=== PATIENT | female | born 1970 | race Caucasian/White ===

== ENCOUNTER → 2016-05-15 | Outpatient (CLI) | payer OTHER ==
[~2016-05-15] MED LIST: DOCU10CA PO; PERCOCET PO
== END ==
LOC: M LAB 09:05
PROVIDERS: ATTEND Physician Assistant
DX: N39.0 Urinary tract infection, site not specified (principal)

== ENCOUNTER → 2017-06-18 | Outpatient (CLI) | payer OTHER | LOC: M LAB 11:32 | DX: R05 Cough (principal); J00 Acute nasopharyngitis [common cold] | CPT/HCPCS: 87633 ==

== ENCOUNTER → 2019-07-23 | Outpatient (CLI) | payer OTHER | LOC: M LABSMTC 13:44 | PROVIDERS: ATTEND Family Medicine | DX: Z11.59 Encounter for screening for other viral diseases (principal); Z20.828 Contact with and (suspected) exposure to other viral communicable diseases ==

== ENCOUNTER 2019-12-12 07:19 | Day surgery (SDC) | payer OTHER ==
[~2019-12-12] VITALS: Ht 172.7 cm; Wt 53.1 kg
[2019-12-12] MEDS ORDERED: CLINDAMYCIN 600 MG/50 ML PREMIX BAG As Ordered ONE (07:42)
[2019-12-12] MEDS ORDERED: LR 1,000 ML IV ONE (08:00)
[2019-12-12] MEDS ORDERED: CLINDAMYCIN 600 MG in IV 1 EA IV ONE (08:00)
[2019-12-12] MEDS ORDERED: fentaNYL 100 MCG/2 ML INJECTION (J3010) As Ordered ONE (08:02)
[2019-12-12] MEDS ORDERED: LIDOCAINE 2% 100MG/5ML SDV (FOR ANES.) As Ordered ONE (08:02)
[2019-12-12] MEDS ORDERED: propofoL 200 MG/20 ML VIAL As Ordered ONE (08:02)
[2019-12-12] MEDS ORDERED: MIDAZOLAM INJ 2MG/2ML VIAL (J2250 PER 1MG) As Ordered ONE (08:03)
[2019-12-12] MEDS ORDERED: BUPIVACAINE HCL 0.5% 10ML VIAL As Ordered ONE (08:19)
[2019-12-12] MEDS ORDERED: dexameTHASONE 4 MG/ML 1ML VIAL (J1100 PER 1MG) As Ordered ONE (08:19)
[2019-12-12] MEDS ORDERED: LIDOCAINE 1% MDV 20ML VIAL As Ordered ONE (08:19)
[2019-12-12] MEDS ORDERED: PHENYLephrine HCL 500 MCG/5 ML (100MCG/ML) SYRINGE (J2370) As Ordered ONE (08:48)
[2019-12-12] MEDS ORDERED: ACETAMINOPHEN 1000MG 100ML IV BTL (OFIRMEV) (J0131 PER 10MG) As Ordered ONE (08:59)
[2019-12-12] MEDS ORDERED: LACRILUBE (AKWA TEARS) OPHTH OINT 3.5 GM As Ordered ONE (09:11)
[2019-12-12] MEDS ORDERED: ONDANSETRON 4MG/2ML VIAL As Ordered ONE (09:18)
[2019-12-12] MEDS ORDERED: ePHEDrine SULFATE 25 MG/5 ML(5MG/ML) SYRINGE As Ordered ONE (09:24)
[2019-12-12] MEDS ORDERED: KETOROLAC 60MG 2ML VIAL As Ordered ONE (09:28)
[2019-12-12 10:45] VITALS: BP 107/54
--- NOTE | 2020-01-30 12:29 | RO ---
DATE OF OPERATION: 12/12/2019 PREOPERATIVE DIAGNOSIS: Right foot recurring neuroma and hammertoes. POSTOPERATIVE DIAGNOSIS: Right foot recurring neuroma and hammertoes. PROCEDURE: Right foot revisional neuroma excision and hammertoe correction, toes 3 and 4. SURGEON: MARIS FISCHER DPM CAREER SERVICES ASSISTANT: None. ANESTHESIA: Monitored anesthesia. Preop injection of 10 mL of a 1:1 mixture of 1% lidocaine plain, 1/2% Marcaine plain. ESTIMATED BLOOD LOSS: Minimal. MATERIALS: 4.5 K-wire, 3-0 and 4-0 Vicryl, 4-0 nylon. INJECTABLES: 1 mL Decadron, 4 mg per mL. COMPLICATION: None. SPECIMEN: Right neuroma. INDICATIONS: Deedee Oconnor is a patient who presents to [facility] with continued pain at a previous neuroma excision as well as recurring hammertoe deformity. She presents today for surgical correction. The patient's side and site were identified and marked in the preoperative holding area. Consent was reviewed and obtained. All risks, complications, and alternatives to the procedure were explained to the patient in detail and all questions were answered. PROCEDURE: The patient was brought to the operating room and placed on the operating room table in the supine position. Monitored anesthesia care was delivered by the anesthesia team. Preoperative injection of 10 ml of a 1:1 mixture of 1% lidocaine plain and 0.5% Marcaine plain were injected in the right foot. The right foot was prepped and draped in normal sterile fashion. A tourniquet was applied to the right ankle and inflated to 215 mmHg. Attention was first paid to the neuroma site at the third interspace. A dorsal incision was made through the previous scar with a #15 blade. Dissection was carried down between the third and fourth metatarsal heads. There was scar tissue encountered and there was soft tissue that appeared consistent with neuroma between the metatarsal heads. This was excised along with scar tissue. Some adhesions were released using a #15 blade and tenotomy scissors. The neuroma was excised and sent to pathology. The site was irrigated with normal saline. Attention was then paid to the third and fourth toes. A dorsal incision was drawn over the previous scars and carried through a #15 blade. Tenotomies were performed and the joint space was accessed using #15 blade. Osteotomies were made to correct for the deformity of the toes using a sagittal saw and K-wire was thrown across the joint in retrograde fashion actually apposing the joints into a good racket test position. Following this, the extensor tendons were repaired using 3-0 Vicryl. Subcutaneous closure was performed with 4-0 Vicryl and the skin closure with 4-0 nylon. 1 mL Decadron was injected. Sterile dressings were applied. Tourniquet was deflated. The patient was brought to the PACU with vital signs stable and neurovascular status intact. She will be weightbearing as tolerated in a postoperative shoe and will follow up in the office in two days. AGUILA
== END 2019-12-12 11:11 | disposition home or self-care (01) ==
LOC: M SDC 07:19
PROVIDERS: ATTEND Podiatrist Foot & Ankle Surgery
DX: M20.41 Other hammer toe(s) (acquired), right foot (principal); G57.61 Lesion of plantar nerve, right lower limb; F17.218 Nicotine dependence, cigarettes, with other nicotine-induced disorders; Z88.0 Allergy status to penicillin; Z88.1 Allergy status to other antibiotic agents; Z79.899 Other long term (current) drug therapy
CPT/HCPCS: 28080; 28285; 88304; J0131; J1100; J1885; J2250; J2370; J2405; J3010

== ENCOUNTER → 2019-12-13 | Outpatient (REF) | payer OTHER | LOC: M LAB REF 17:38 | PROVIDERS: ATTEND Physician Assistant Medical | DX: N39.0 Urinary tract infection, site not specified (principal) ==

== ENCOUNTER → 2020-04-12 | Outpatient (CLI) | payer OTHER | LOC: M LABSMTC 07:58 | PROVIDERS: ATTEND Pediatrics | DX: Z20.828 Contact with and (suspected) exposure to other viral communicable diseases (principal) ==

== ENCOUNTER → 2020-08-13 | Outpatient (REF) | LOC: M LABSMTC 14:16 | PROVIDERS: ATTEND Pediatrics | DX: Z20.822 Contact with and (suspected) exposure to COVID-19 (principal) ==

== ENCOUNTER → 2021-04-06 | Outpatient (REF) | LOC: M LABSMTC 09:14 | PROVIDERS: ATTEND Family Medicine | DX: Z20.822 Contact with and (suspected) exposure to COVID-19 (principal) ==

== ENCOUNTER → 2022-08-31 | Outpatient (CLI) | payer OTHER | LOC: M RAD 13:51 | PROVIDERS: ATTEND Internal Medicine | DX: R59.9 Enlarged lymph nodes, unspecified (principal) ==

== ENCOUNTER → 2022-09-07 | Outpatient (CLI) | payer OTHER ==
[~2022-09-07] MED LIST changes: +CLIN150C17 PO; +LIDOCAINE 1% MDV 20ML VIAL As Ordered ONE; +LORA2CON5 PO; +NICO2GUM MT
[2022-09-07 09:10] VITALS: BP 127/80
== END ==
LOC: M IRPRO 08:07
PROVIDERS: ATTEND Internal Medicine
DX: L03.314 Cellulitis of groin (principal)

== ENCOUNTER → 2022-09-22 | Outpatient (CLI) | payer OTHER ==
[~2022-09-22] MED LIST changes: -LIDOCAINE 1% MDV 20ML VIAL As Ordered ONE
== END ==
LOC: M PLARAD 13:30
PROVIDERS: ATTEND Internal Medicine
DX: C44.529 Squamous cell carcinoma of skin of other part of trunk (principal)
CPT/HCPCS: 78815; A9552

== ENCOUNTER → 2022-09-29 | Outpatient (CLI) | payer OTHER ==
[~2022-09-29] MED LIST changes: +ATIV1TAB10 PO
== END ==
LOC: M ONCR 08:32
PROVIDERS: ATTEND General Practice
DX: C49.5 Malignant neoplasm of connective and soft tissue of pelvis (principal); F17.210 Nicotine dependence, cigarettes, uncomplicated; Z71.2 Person consulting for explanation of examination or test findings; Z79.899 Other long term (current) drug therapy; Z80.1 Family history of malignant neoplasm of trachea, bronchus and lung; Z88.0 Allergy status to penicillin; Z88.1 Allergy status to other antibiotic agents; Z88.5 Allergy status to narcotic agent; Z90.710 Acquired absence of both cervix and uterus

== ENCOUNTER → 2022-09-30 | Outpatient (REF) | payer OTHER | LOC: M SFHCWAGY 17:40 | PROVIDERS: ATTEND Specialist | DX: D07.1 Carcinoma in situ of vulva (principal) ==

== ENCOUNTER → 2022-10-08 | Outpatient (CLI) | payer OTHER ==
[~2022-10-08] MED LIST changes: +PROHANCE 279.3MG/ML 5ML VIAL ONE
== END ==
LOC: M PLAIMG 12:14
PROVIDERS: ATTEND General Practice
DX: C77.4 Secondary and unspecified malignant neoplasm of inguinal and lower limb lymph nodes (principal); Z90.710 Acquired absence of both cervix and uterus
CPT/HCPCS: 72197; A9576

== ENCOUNTER → 2022-11-05 | Outpatient (CLI) | payer OTHER ==
[~2022-11-05] VITALS: Ht 172.7 cm; Wt 120.8 kg
[~2022-11-05] MED LIST changes: +ACET-897 PO; +ACETAMINOPHEN 325 MG TAB As Ordered ONE; +ACETAMINOPHEN TAB 650MG DOSE (2X325MG) PO ONE; +HYDROCORTISONE 100MG/2ML VIAL IV ONE; +IBUP200C25 PO; +LIDO30CR18 TOP; +LIDOCAINE 1% MDV 20ML VIAL As Ordered ONE; +LIDOCAINE W/EPINEPHRINE 1% 20ML VIAL As Ordered ONE; +MELA5TAB47 PO; +MIDAZOLAM INJ 2MG/2ML VIAL As Ordered ONE; +ONDA-84 PO; +OXYC-517 PO; +PROC10TA5 PO; -PROHANCE 279.3MG/ML 5ML VIAL ONE; +VANCOMYCIN 1000MG/20ML VIAL As Ordered ONE; +VANCOMYCIN HCL 1,000 MG, VIAL MATE ADAPTER 1 EACH in D5W 250 ML IV ONE; +diphenhydrAMINE 50MG/ML VIAL As Ordered ONE; +diphenhydrAMINE 50MG/ML VIAL IV ONE; +fentaNYL 100 MCG/2 ML INJECTION As Ordered ONE
[2022-11-05 08:00] VITALS: TEMP 96.4
[2022-11-05 11:00] VITALS: BP 123/84; O2SAT 100
== END ==
LOC: M IRPRO 07:40
PROVIDERS: ATTEND Specialist
DX: C77.4 Secondary and unspecified malignant neoplasm of inguinal and lower limb lymph nodes (principal)
CPT/HCPCS: 36561; 99152; 99153; C1769; C1788; C1894; J1200; J1720; J2250; J3010

== ENCOUNTER → 2022-11-22 | Outpatient (RCR) | payer OTHER ==
[~2022-11-22] MED LIST changes: -ACETAMINOPHEN 325 MG TAB As Ordered ONE; -ACETAMINOPHEN TAB 650MG DOSE (2X325MG) PO ONE; +DEXA5TA PO; +FLUC10TA PO; -HYDROCORTISONE 100MG/2ML VIAL IV ONE; -LIDOCAINE 1% MDV 20ML VIAL As Ordered ONE; -LIDOCAINE W/EPINEPHRINE 1% 20ML VIAL As Ordered ONE; -MIDAZOLAM INJ 2MG/2ML VIAL As Ordered ONE; +ONDA-83 PO; -VANCOMYCIN 1000MG/20ML VIAL As Ordered ONE; -VANCOMYCIN HCL 1,000 MG, VIAL MATE ADAPTER 1 EACH in D5W 250 ML IV ONE; -diphenhydrAMINE 50MG/ML VIAL As Ordered ONE; -diphenhydrAMINE 50MG/ML VIAL IV ONE; -fentaNYL 100 MCG/2 ML INJECTION As Ordered ONE
== END ==
LOC: M ONCR 10-27 13:43
PROVIDERS: ATTEND General Practice
DX: C51.8 Malignant neoplasm of overlapping sites of vulva (principal)

== ENCOUNTER → 2022-12-23 | Outpatient (RCR) | payer OTHER ==
[~2022-12-23] MED LIST changes: +CIPR750T2 PO; +DEXA4TA PO; +FLUO1CRE4 TOP; +HYDR-3713 PO; +NITR-67 PO; +OXYC-600 PO; +POTA-298 PO; +SILV1CRE60 TOP; +ZYPR10TA PO
== END ==
LOC: M ONCR 11-23 07:51
PROVIDERS: ATTEND General Practice
DX: Z51.0 Encounter for antineoplastic radiation therapy (principal); C51.8 Malignant neoplasm of overlapping sites of vulva; C77.4 Secondary and unspecified malignant neoplasm of inguinal and lower limb lymph nodes

== ENCOUNTER → 2022-12-28 | Outpatient (CLI) | payer OTHER ==
[~2022-12-28] MED LIST changes: +LIDOCAINE 2% 5ML JELLY UROJET TOP ONE; +OXYB10TA23 PO
== END ==
LOC: M ONCR 15:30
PROVIDERS: ATTEND General Practice
DX: R23.4 Changes in skin texture (principal); R30.9 Painful micturition, unspecified

== ENCOUNTER 2023-01-02 09:51 | Inpatient (IN) | payer OTHER ==
[~2023-01-02] VITALS: Ht 172.7 cm; Wt 52.1 kg
[~2023-01-02 09:51] MED LIST changes: -LIDOCAINE 2% 5ML JELLY UROJET TOP ONE
[2023-01-02 10:38] LABS: BASO % 0.4 % (0.0-1.0); EOS % 0.1 % (0.0-3.0); HEMATOCRIT 31.1 % (36.0-47.0); HEMOGLOBIN 10.3 g/dl (12.0-15.5); LYMPH # 0.4 10^3/uL (1.5-5.0); LYMPH % 4.8 % (24.0-44.0); MEAN CORPUSCULAR HEMOGLOBIN 30.6 pg (27.0-33.0); MEAN CORPUSCULAR HGB CONC 33.1 g/dl (32.0-36.5); MEAN CORPUSCULAR VOLUME 92.3 fl (80.0-96.0); MONO # 0.6 10^3/uL (0.0-0.8); MONO % 8.4 % (2.0-8.0); NEUTROPHILS # 6.3 10^3/uL (1.5-8.5); NEUTROPHILS % 84.4 % (36.0-66.0); PLATELET COUNT, AUTOMATED 257 10^3/uL (150-450); RED BLOOD COUNT 3.37 10^6/uL (4.00-5.40); WHITE BLOOD COUNT 7.5 10^3/uL (4.0-10.0)
[2023-01-02] MEDS ORDERED: ONDANSETRON 4MG 2ML VIAL IV ONE (10:45)
[2023-01-02 10:57] LABS: CK-MB VALUE MASS < 1.0 NG/ML (<3.6); LIPASE 21 U/L (12-53)
[2023-01-02] MEDS: HYDROMORPHONE HCL 0.5 MG/ 0.5 ML SYRINGE IV PRN ×5 (10:57→23:21)
[2023-01-02 10:59] LABS: CPK CREATINE PHOSPHOKINASE 37 U/L (34-145)
[2023-01-02 11:05] LABS: ALKALINE PHOSPHATASE 104 U/L (46-116); ALT/SGPT 29 U/L (7.0-40); AST/SGOT 27 U/L (<34); BILIRUBIN,DIRECT 0.3 MG/DL (<0.4); BILIRUBIN,TOTAL 0.9 MG/DL (0.3-1.2); TOTAL PROTEIN 6.3 G/DL (5.7-8.2)
[2023-01-02] MEDS ORDERED: oxyBUTYnin *DITROPAN XL* 5 MG TABCR PO ONE ×2 (13:15→14:00)
[2023-01-02] MEDS ORDERED: CIPROFLOXACIN 400 MG in IV 1 EA IV ONE (14:00)
[2023-01-02 15:25] LABS: RSV AMPLIFICATION NEGATIVE (NEGATIVE)
[2023-01-02 16:33] LABS: BLOOD UREA NITROGEN 10 MG/DL (9-23); CALCIUM LEVEL 8.5 MG/DL (8.5-10.1); CARBON DIOXIDE LEVEL 28 MMOL/L (20-31); CHLORIDE LEVEL 100 MMOL/L (98-107); GLOMERULAR FILTRATION RATE > 60.0 (>51); GLUCOSE, FASTING 110 MG/DL (60-100); POTASSIUM SERUM 3.5 MMOL/L (3.5-5.1); SODIUM LEVEL 136 MMOL/L (136-145)
[2023-01-02] MEDS ORDERED: MAALOX 30 ML SUSP *UDC PO PRN (17:00)
[2023-01-02] MEDS ORDERED: ACETAMINOPHEN TAB 650MG DOSE (2X325MG) PO PRN (17:00)
[2023-01-02] MEDS ORDERED: MOM 30ML SUSPENSION UDC PO PRN (17:00)
[2023-01-02] MEDS ORDERED: POTASSIUM CHLORIDE 10MEQ SR TABLET PO ONE (17:05)
[2023-01-02] MEDS: NS 1,000 ML IV SCH (17:18)
[2023-01-02 17:58] LABS: PROCALCITONIN 0.14 ng/ml
[2023-01-02 18:00] VITALS: BP 128/75; TEMP 98.3; O2SAT 97
[2023-01-02 18:04] LABS: MAGNESIUM LEVEL 0.9 MG/DL (1.8-2.4)
[2023-01-02] MEDS ORDERED: HYDR-3713 PO (18:04)
[2023-01-02] MEDS ORDERED: OXYB10TA23 PO (18:09)
[2023-01-02] MEDS ORDERED: ONDA-83 PO (18:09)
[2023-01-02] MEDS ORDERED: HOME MED LIST COMPLETE! XX SCH (18:15)
[2023-01-02] MEDS: MAG SULF 1GM/100ML (MAG RUN) 1 GM in IV 1 EA IV SCH ×4 (18:26→22:30)
[2023-01-02 20:58] VITALS: BP 125/64; TEMP 98; O2SAT 97
[2023-01-02] MEDS: DOCUSATE SODIUM 100MG CAPSULE PO SCH (21:00)
[2023-01-02] MEDS: ENOXAPARIN 40MG/0.4ML SYRINGE (J1650 PER 10MG) SC SCH (21:07)
[2023-01-02] MEDS: PHENAZOPYRIDINE 100 MG TAB PO SCH (21:07)
[2023-01-03] VITALS (19 sets, daily range): BP systolic 94–115; BP diastolic 57–69; TEMP 97.5–99; O2SAT 91–97
[2023-01-03] MEDS: MAG SULF 1GM/100ML (MAG RUN) 1 GM in IV 1 EA IV SCH (00:27)
[2023-01-03] MEDS: HYDROMORPHONE HCL 0.5 MG/ 0.5 ML SYRINGE IV PRN ×7 (00:28→20:40)
[2023-01-03] MEDS ORDERED: CIPROFLOXACIN 400 MG in IV 1 EA IV SCH (02:00)
[2023-01-03 05:09] LABS: BASO % 0.6 % (0.0-1.0); EOS # 0.1 10^3/uL (0.0-0.5); HEMATOCRIT 26.4 % (36.0-47.0); HEMOGLOBIN 8.5 g/dl (12.0-15.5); LYMPH # 0.3 10^3/uL (1.5-5.0); LYMPH % 6.4 % (24.0-44.0); MEAN CORPUSCULAR HEMOGLOBIN 30.7 pg (27.0-33.0); MEAN CORPUSCULAR HGB CONC 32.2 g/dl (32.0-36.5); MEAN CORPUSCULAR VOLUME 95.3 fl (80.0-96.0); MONO # 0.6 10^3/uL (0.0-0.8); MONO % 12.1 % (2.0-8.0); NEUTROPHILS % 78.9 % (36.0-66.0); PLATELET COUNT, AUTOMATED 191 10^3/uL (150-450); RED BLOOD COUNT 2.77 10^6/uL (4.00-5.40); WHITE BLOOD COUNT 5.1 10^3/uL (4.0-10.0)
[2023-01-03 05:33] LABS: BLOOD UREA NITROGEN 8 MG/DL (9-23); CALCIUM LEVEL 7.8 MG/DL (8.5-10.1); CARBON DIOXIDE LEVEL 31 MMOL/L (20-31); CHLORIDE LEVEL 101 MMOL/L (98-107); CREATININE FOR GFR 0.67 MG/DL (0.55-1.30); GLOMERULAR FILTRATION RATE > 60.0 (>51); GLUCOSE, FASTING 116 MG/DL (60-100); POTASSIUM SERUM 3.4 MMOL/L (3.5-5.1); SODIUM LEVEL 138 MMOL/L (136-145)
[2023-01-03] MEDS ORDERED: POTASSIUM CHLORIDE 10MEQ SR TABLET PO ONE (08:00)
[2023-01-03] MEDS: LACTOBACILLUS ACIDOPHILUS CAP (BACID) PO SCH ×4 (08:54→20:39)
[2023-01-03] MEDS: DOCUSATE SODIUM 100MG CAPSULE PO SCH ×2 (08:54→20:39)
[2023-01-03] MEDS: PHENAZOPYRIDINE 100 MG TAB PO SCH ×3 (08:54→20:38)
[2023-01-03] MEDS ORDERED: oxyBUTYnin *DITROPAN XL* 5 MG TABCR PO SCH (09:00)
[2023-01-03] MEDS: NS 1,000 ML IV SCH ×3 (09:04→20:40)
[2023-01-03] MEDS: CIPROFLOXACIN 500MG TABLET PO SCH ×2 (11:42→17:22)
[2023-01-03] MEDS ORDERED: ONDANSETRON 4MG 2ML VIAL IV PRN (15:30)
[2023-01-03] MEDS ORDERED: SODIUM CHLORIDE 0.9% INJ 10 ML SYR IV PRN (20:15)
[2023-01-03] MEDS: ENOXAPARIN 40MG/0.4ML SYRINGE (J1650 PER 10MG) SC SCH (20:39)
[2023-01-03] MEDS: RAMELTEON 8 MG TAB (ROZEREM) PO PRN (22:17)
[2023-01-04] VITALS (19 sets, daily range): BP systolic 94–124; BP diastolic 56–70; TEMP 97.9–98.4; O2SAT 92–98
[2023-01-04] MEDS: HYDROMORPHONE HCL 0.5 MG/ 0.5 ML SYRINGE IV PRN ×7 (00:43→22:54)
[2023-01-04] MEDS ORDERED: oxyBUTYnin *DITROPAN XL* 5 MG TABCR PO ONE (01:45)
[2023-01-04] MEDS: CIPROFLOXACIN 500MG TABLET PO SCH ×2 (06:06→17:26)
[2023-01-04 06:38] LABS: BASO % 0.4 % (0.0-1.0); EOS % 0.4 % (0.0-3.0); HEMATOCRIT 24.5 % (36.0-47.0); HEMOGLOBIN 7.9 g/dl (12.0-15.5); LYMPH # 0.3 10^3/uL (1.5-5.0); LYMPH % 5.1 % (24.0-44.0); MEAN CORPUSCULAR HEMOGLOBIN 31.5 pg (27.0-33.0); MEAN CORPUSCULAR HGB CONC 32.2 g/dl (32.0-36.5); MEAN CORPUSCULAR VOLUME 97.6 fl (80.0-96.0); MONO # 0.7 10^3/uL (0.0-0.8); MONO % 10.3 % (2.0-8.0); NEUTROPHILS # 5.5 10^3/uL (1.5-8.5); NEUTROPHILS % 82.3 % (36.0-66.0); PLATELET COUNT, AUTOMATED 185 10^3/uL (150-450); RED BLOOD COUNT 2.51 10^6/uL (4.00-5.40); WHITE BLOOD COUNT 6.7 10^3/uL (4.0-10.0)
[2023-01-04] MEDS: NS 1,000 ML IV SCH (06:40)
[2023-01-04 07:07] LABS: BLOOD UREA NITROGEN 6 MG/DL (9-23); CALCIUM LEVEL 8.1 MG/DL (8.5-10.1); CARBON DIOXIDE LEVEL 28 MMOL/L (20-31); CHLORIDE LEVEL 105 MMOL/L (98-107); CREATININE FOR GFR 0.68 MG/DL (0.55-1.30); GLOMERULAR FILTRATION RATE > 60.0 (>51); GLUCOSE, FASTING 85 MG/DL (60-100); MAGNESIUM LEVEL 1.4 MG/DL (1.8-2.4); POTASSIUM SERUM 4.2 MMOL/L (3.5-5.1); SODIUM LEVEL 140 MMOL/L (136-145)
[2023-01-04] MEDS: DOCUSATE SODIUM 100MG CAPSULE PO SCH ×2 (07:55→20:50)
[2023-01-04] MEDS: LACTOBACILLUS ACIDOPHILUS CAP (BACID) PO SCH ×4 (07:55→20:50)
[2023-01-04] MEDS: PHENAZOPYRIDINE 100 MG TAB PO SCH ×2 (07:55→15:45)
[2023-01-04] MEDS: SODIUM CHLORIDE 0.9% INJ 10 ML SYR IV SCH (07:57)
[2023-01-04] MEDS ORDERED: oxyBUTYnin *DITROPAN XL* 5 MG TABCR PO SCH (09:00)
[2023-01-04] MEDS: MAG SULF 1GM/100ML (MAG RUN) 1 GM in IV 1 EA IV SCH ×3 (12:08→14:25)
[2023-01-04] MEDS ORDERED: NORCO, ANEXSIA 5/325MG TABLET (HYDROcodone/ACETAMINOPHEN) PO PRN (12:15)
[2023-01-04] MEDS: ENOXAPARIN 40MG/0.4ML SYRINGE (J1650 PER 10MG) SC SCH (20:51)
[2023-01-04] MEDS: RAMELTEON 8 MG TAB (ROZEREM) PO PRN (22:55)
[2023-01-05] VITALS (29 sets, daily range): BP systolic 97–109; BP diastolic 52–66; TEMP 97–97.9; O2SAT 91–99
[2023-01-05 05:55] LABS: BASO % 0.3 % (0.0-1.0); EOS # 0.1 10^3/uL (0.0-0.5); HEMATOCRIT 24.6 % (36.0-47.0); HEMOGLOBIN 8.2 g/dl (12.0-15.5); LYMPH # 0.4 10^3/uL (1.5-5.0); LYMPH % 6.5 % (24.0-44.0); MEAN CORPUSCULAR HGB CONC 33.3 g/dl (32.0-36.5); MEAN CORPUSCULAR VOLUME 96.1 fl (80.0-96.0); MONO # 0.8 10^3/uL (0.0-0.8); MONO % 12.7 % (2.0-8.0); NEUTROPHILS # 4.7 10^3/uL (1.5-8.5); NEUTROPHILS % 77.8 % (36.0-66.0); PLATELET COUNT, AUTOMATED 183 10^3/uL (150-450); RED BLOOD COUNT 2.56 10^6/uL (4.00-5.40)
[2023-01-05] MEDS: HYDROMORPHONE HCL 0.5 MG/ 0.5 ML SYRINGE IV PRN ×2 (05:55→10:43)
[2023-01-05] MEDS: CIPROFLOXACIN 500MG TABLET PO SCH ×2 (05:55→17:21)
[2023-01-05 06:26] LABS: BLOOD UREA NITROGEN 5 MG/DL (9-23); CALCIUM LEVEL 8.1 MG/DL (8.5-10.1); CARBON DIOXIDE LEVEL 31 MMOL/L (20-31); CHLORIDE LEVEL 107 MMOL/L (98-107); CREATININE FOR GFR 0.73 MG/DL (0.55-1.30); GLOMERULAR FILTRATION RATE > 60.0 (>51); GLUCOSE, FASTING 102 MG/DL (60-100); MAGNESIUM LEVEL 1.6 MG/DL (1.8-2.4); POTASSIUM SERUM 3.8 MMOL/L (3.5-5.1); SODIUM LEVEL 142 MMOL/L (136-145)
[2023-01-05] MEDS: MAG SULF 1GM/100ML (MAG RUN) 1 GM in IV 1 EA IV SCH ×3 (08:44→11:45)
[2023-01-05] MEDS: DOCUSATE SODIUM 100MG CAPSULE PO SCH (08:44)
[2023-01-05] MEDS: LACTOBACILLUS ACIDOPHILUS CAP (BACID) PO SCH ×4 (08:44→20:28)
[2023-01-05] MEDS: MAGNESIUM OXIDE 400MG TAB (MAG-OX) PO SCH ×2 (08:45→20:28)
[2023-01-05] MEDS: oxyBUTYnin *DITROPAN XL* 5 MG TABCR PO SCH (08:45)
[2023-01-05] MEDS: SODIUM CHLORIDE 0.9% INJ 10 ML SYR IV SCH (08:46)
[2023-01-05] MEDS ORDERED: PERCOCET 5MG/325MG TAB PO PRN (12:10)
[2023-01-05] MEDS: PERCOCET 5MG/325MG TAB PO PRN ×3 (13:09→21:27)
[2023-01-05] MEDS ORDERED: VANICREAM MOISTURIZING SKIN CREAM 113GM TUBE TOP PRN (15:45)
[2023-01-05] MEDS ORDERED: HYDROMORPHONE HCL 0.5 MG/ 0.5 ML SYRINGE IV PRN (16:00)
[2023-01-05] MEDS: MIRALAX *UNIT DOSE* 17GM PACKET PO SCH (17:20)
[2023-01-05] MEDS: SENOKOT S TAB PO SCH (20:28)
[2023-01-05] MEDS: ENOXAPARIN 40MG/0.4ML SYRINGE (J1650 PER 10MG) SC SCH (20:28)
[2023-01-05] MEDS: RAMELTEON 8 MG TAB (ROZEREM) PO PRN (21:27)
[2023-01-06] VITALS (19 sets, daily range): BP systolic 90–120; BP diastolic 54–67; TEMP 97.2–98.1; O2SAT 91–99
[2023-01-06] MEDS: PERCOCET 5MG/325MG TAB PO PRN ×4 (01:52→14:15)
[2023-01-06 04:25] LABS: BASO # 0.1 10^3/uL (0.0-0.2); EOS # 0.1 10^3/uL (0.0-0.5); EOS % 1.2 % (0.0-3.0); HEMATOCRIT 23.4 % (36.0-47.0); HEMOGLOBIN 7.6 g/dl (12.0-15.5); LYMPH # 0.4 10^3/uL (1.5-5.0); LYMPH % 7.3 % (24.0-44.0); MEAN CORPUSCULAR HEMOGLOBIN 31.4 pg (27.0-33.0); MEAN CORPUSCULAR HGB CONC 32.5 g/dl (32.0-36.5); MEAN CORPUSCULAR VOLUME 96.7 fl (80.0-96.0); MONO # 0.6 10^3/uL (0.0-0.8); MONO % 12.7 % (2.0-8.0); NEUTROPHILS # 3.6 10^3/uL (1.5-8.5); NEUTROPHILS % 75.5 % (36.0-66.0); PLATELET COUNT, AUTOMATED 185 10^3/uL (150-450); RED BLOOD COUNT 2.42 10^6/uL (4.00-5.40); WHITE BLOOD COUNT 4.8 10^3/uL (4.0-10.0)
[2023-01-06 04:44] LABS: BLOOD UREA NITROGEN 5 MG/DL (9-23); CALCIUM LEVEL 8.1 MG/DL (8.5-10.1); CARBON DIOXIDE LEVEL 32 MMOL/L (20-31); CHLORIDE LEVEL 105 MMOL/L (98-107); CREATININE FOR GFR 0.77 MG/DL (0.55-1.30); GLOMERULAR FILTRATION RATE > 60.0 (>51); GLUCOSE, FASTING 79 MG/DL (60-100); MAGNESIUM LEVEL 1.9 MG/DL (1.8-2.4); POTASSIUM SERUM 3.5 MMOL/L (3.5-5.1); SODIUM LEVEL 142 MMOL/L (136-145)
[2023-01-06] MEDS: CIPROFLOXACIN 500MG TABLET PO SCH (05:59)
[2023-01-06 07:29] LABS: FERRITIN 465.1 NG/ML (7.3-270.7); FOLATE 10.3 NG/ML (>5.4)
[2023-01-06 07:30] LABS: VITAMIN B12 LEVEL 535 PG/ML (211-911)
[2023-01-06 07:57] LABS: IRON (FE) 82 UG/DL (50-170); PERCENT SATURATION 35.2 % (13.2-45.0); TOTAL IRON BINDING CAPACITY 233 UG/DL (250-425)
[2023-01-06] MEDS ORDERED: BISACODYL 10MG SUPP PR SCH (09:00)
[2023-01-06] MEDS: SENOKOT S TAB PO SCH (09:04)
[2023-01-06] MEDS: MIRALAX *UNIT DOSE* 17GM PACKET PO SCH (09:04)
[2023-01-06] MEDS: MAGNESIUM OXIDE 400MG TAB (MAG-OX) PO SCH (09:04)
[2023-01-06] MEDS: oxyBUTYnin *DITROPAN XL* 5 MG TABCR PO SCH (09:04)
[2023-01-06] MEDS: LACTOBACILLUS ACIDOPHILUS CAP (BACID) PO SCH ×2 (09:04→13:16)
[2023-01-06] MEDS: SODIUM CHLORIDE 0.9% INJ 10 ML SYR IV SCH (09:06)
[2023-01-06] MEDS ORDERED: PERCOCET PO (11:29)
[2023-01-06] MEDS ORDERED: MAGN400T2 PO (11:29)
[2023-01-06] MEDS ORDERED: OXYB10TA23 PO (11:29)
[2023-01-06] MEDS ORDERED: CIPR-249 PO (11:29)
[2023-01-06] MEDS ORDERED: MIRA1POW3 PO (11:29)
[2023-01-06] MEDS ORDERED: BISA10SU PR (11:29)
[2023-01-06] MEDS ORDERED: SENN-52 PO (11:30)
== END 2023-01-06 15:13 | disposition home or self-care (01) | DRG 760 ==
LOC: M ED 09:51 → M ED INP 16:56 → M PCU 18:00
PROVIDERS: ADMIT Internal Medicine; ATTEND Internal Medicine
PROC: 30233N1 Transfusion of Nonautologous Red Blood Cells into Peripheral Vein, Percutaneous Approach (ICD-10-PCS; principal; 2023-01-06)
DX: N94.89 Other specified conditions associated with female genital organs and menstrual cycle (principal); N39.0 Urinary tract infection, site not specified; K59.00 Constipation, unspecified; D63.8 Anemia in other chronic diseases classified elsewhere; Z92.3 Personal history of irradiation; Z92.21 Personal history of antineoplastic chemotherapy; E83.42 Hypomagnesemia; C51.9 Malignant neoplasm of vulva, unspecified; E87.6 Hypokalemia; Z88.0 Allergy status to penicillin; Z88.5 Allergy status to narcotic agent; Z88.8 Allergy status to other drugs, medicaments and biological substances; Z79.899 Other long term (current) drug therapy

== ENCOUNTER → 2023-02-18 | Outpatient (CLI) | payer OTHER ==
[~2023-02-18] MED LIST changes: +BACT800T5 PO; +BISA10SU PR; +CARA1TAB6 PO; +CIPR-249 PO; +MAGN400T2 PO; +MIRA1POW3 PO; +OMEP-173 PO; +SENN-52 PO
== END ==
LOC: M ONCR 08:37
PROVIDERS: ATTEND General Practice
DX: Z01.89 Encounter for other specified special examinations (principal); R10.13 Epigastric pain; L59.8 Other specified disorders of the skin and subcutaneous tissue related to radiation; Z92.21 Personal history of antineoplastic chemotherapy; Z92.3 Personal history of irradiation

== ENCOUNTER → 2023-03-14 | Outpatient (CLI) | payer OTHER | LOC: M PLARAD 11:37 | PROVIDERS: ATTEND General Practice | DX: C51.8 Malignant neoplasm of overlapping sites of vulva (principal) | CPT/HCPCS: 78815; A9552 ==

== ENCOUNTER → 2023-03-15 | Outpatient (CLI) | payer OTHER | LOC: M ONCR 14:32 | PROVIDERS: ATTEND General Practice | DX: C51.8 Malignant neoplasm of overlapping sites of vulva (principal); C77.4 Secondary and unspecified malignant neoplasm of inguinal and lower limb lymph nodes; F17.210 Nicotine dependence, cigarettes, uncomplicated; Z71.2 Person consulting for explanation of examination or test findings; Z79.899 Other long term (current) drug therapy; Z88.0 Allergy status to penicillin; Z88.1 Allergy status to other antibiotic agents; Z88.5 Allergy status to narcotic agent; Z92.21 Personal history of antineoplastic chemotherapy; Z92.3 Personal history of irradiation ==

== ENCOUNTER → 2023-05-26 | Outpatient (CLI) | payer OTHER ==
[~2023-05-26] MED LIST changes: +PROHANCE 279.3MG/ML 5ML VIAL ONE
== END ==
LOC: M PLAIMG 07:49
PROVIDERS: ATTEND Internal Medicine Medical Oncology
DX: C51.9 Malignant neoplasm of vulva, unspecified (principal); R10.2 Pelvic and perineal pain
CPT/HCPCS: 72197; A9576

== ENCOUNTER → 2023-06-17 | Outpatient (CLI) | payer OTHER ==
[~2023-06-17] MED LIST changes: -MIRA1POW3 PO; +MIRA33506 PO; -PROHANCE 279.3MG/ML 5ML VIAL ONE
== END ==
LOC: M ONCR 14:56
PROVIDERS: ATTEND General Practice
DX: C51.8 Malignant neoplasm of overlapping sites of vulva (principal); C77.4 Secondary and unspecified malignant neoplasm of inguinal and lower limb lymph nodes; F17.210 Nicotine dependence, cigarettes, uncomplicated; Z79.899 Other long term (current) drug therapy; Z88.0 Allergy status to penicillin; Z88.1 Allergy status to other antibiotic agents; Z88.5 Allergy status to narcotic agent; Z92.21 Personal history of antineoplastic chemotherapy; Z92.3 Personal history of irradiation

== ENCOUNTER → 2023-08-04 | Outpatient (CLI) | payer OTHER | LOC: M RAD 07:08 | PROVIDERS: ATTEND Otolaryngology | DX: K11.20 Sialoadenitis, unspecified (principal) ==

== ENCOUNTER → 2023-09-01 | Outpatient (CLI) | payer OTHER | LOC: M RAD 06:38 | PROVIDERS: ATTEND Surgery | DX: R10.11 Right upper quadrant pain (principal) ==

== ENCOUNTER → 2023-09-09 | Outpatient (CLI) | payer OTHER ==
[~2023-09-09] MED LIST changes: +METR70GE8 PV
== END ==
LOC: M ONCR 09:57
PROVIDERS: ATTEND General Practice
DX: C51.8 Malignant neoplasm of overlapping sites of vulva (principal); N89.8 Other specified noninflammatory disorders of vagina; Z92.21 Personal history of antineoplastic chemotherapy; Z92.3 Personal history of irradiation; F17.210 Nicotine dependence, cigarettes, uncomplicated; Z71.2 Person consulting for explanation of examination or test findings; Z79.899 Other long term (current) drug therapy; Z88.0 Allergy status to penicillin; Z88.1 Allergy status to other antibiotic agents; Z88.5 Allergy status to narcotic agent
CPT/HCPCS: 36415; 87210; G0463

== ENCOUNTER 2023-10-12 08:13 | Day surgery (SDC) | payer OTHER ==
[~2023-10-12] VITALS: Ht 172.7 cm; Wt 58.0 kg
[2023-10-12] MEDS: NS 1,000 ML IV ONE (08:57)
[2023-10-12 09:45] VITALS: TEMP 97.2
[2023-10-12 10:12] VITALS: BP 112/68; O2SAT 99
== END 2023-10-12 10:23 | disposition home or self-care (01) ==
LOC: M OPP 08:13
PROVIDERS: ATTEND Surgery
DX: K31.89 Other diseases of stomach and duodenum (principal); K22.89 Other specified disease of esophagus; K29.70 Gastritis, unspecified, without bleeding; R10.13 Epigastric pain; Z79.899 Other long term (current) drug therapy; Z88.0 Allergy status to penicillin; Z88.1 Allergy status to other antibiotic agents; Z88.5 Allergy status to narcotic agent

== ENCOUNTER → 2023-12-12 | Outpatient (CLI) | payer OTHER | LOC: M RAD 09:40 | PROVIDERS: ATTEND General Practice | DX: C51.8 Malignant neoplasm of overlapping sites of vulva (principal); I70.0 Atherosclerosis of aorta; K42.9 Umbilical hernia without obstruction or gangrene; K76.89 Other specified diseases of liver; K86.89 Other specified diseases of pancreas; J43.2 Centrilobular emphysema; J98.11 Atelectasis; R91.1 Solitary pulmonary nodule ==

== ENCOUNTER → 2023-12-16 | Outpatient (CLI) | payer OTHER | LOC: M ONCR 13:24 | PROVIDERS: ATTEND General Practice | DX: C51.8 Malignant neoplasm of overlapping sites of vulva (principal); D37.8 Neoplasm of uncertain behavior of other specified digestive organs; L58.9 Radiodermatitis, unspecified; F17.210 Nicotine dependence, cigarettes, uncomplicated; W88.8XXA Exposure to other ionizing radiation, initial encounter; Z88.0 Allergy status to penicillin; Z88.1 Allergy status to other antibiotic agents; Z88.5 Allergy status to narcotic agent; Z92.21 Personal history of antineoplastic chemotherapy; Z92.3 Personal history of irradiation ==

== ENCOUNTER → 2024-01-03 | Outpatient (CLI) | payer OTHER | LOC: M ONCR 10:10 | PROVIDERS: ATTEND General Practice | DX: C77.4 Secondary and unspecified malignant neoplasm of inguinal and lower limb lymph nodes (principal); Z85.42 Personal history of malignant neoplasm of other parts of uterus ==

== ENCOUNTER → 2024-01-03 | Outpatient (CLI) | payer BC, OTHER ==
[~2024-01-03] MED LIST changes: +PROHANCE 279.3MG/ML 15ML VIAL As Ordered ONE
== END ==
LOC: M RAD 07:54
PROVIDERS: ATTEND General Practice
DX: D13.6 Benign neoplasm of pancreas (principal)
CPT/HCPCS: 74183; A9576

== ENCOUNTER → 2024-01-23 | Outpatient (CLI) | payer OTHER ==
[~2024-01-23] MED LIST changes: -PROHANCE 279.3MG/ML 15ML VIAL As Ordered ONE
== END ==
LOC: M RAD 07:53
PROVIDERS: ATTEND Physician Assistant
DX: R10.13 Epigastric pain (principal)
CPT/HCPCS: 78227; A9537

== ENCOUNTER → 2024-03-20 | Outpatient (CLI) | payer OTHER | LOC: M ONCR 09:57 | PROVIDERS: ATTEND General Practice | DX: C51.8 Malignant neoplasm of overlapping sites of vulva (principal); D37.8 Neoplasm of uncertain behavior of other specified digestive organs; F17.210 Nicotine dependence, cigarettes, uncomplicated; Z88.0 Allergy status to penicillin; Z88.1 Allergy status to other antibiotic agents; Z88.5 Allergy status to narcotic agent; Z92.21 Personal history of antineoplastic chemotherapy; Z92.3 Personal history of irradiation ==

== ENCOUNTER → 2024-06-11 | Outpatient (CLI) | payer OTHER ==
[~2024-06-11] MED LIST changes: +ISOVUE-370 76% 100ML VIAL As Ordered ONE
== END ==
LOC: M RAD 08:16
PROVIDERS: ATTEND General Practice
DX: C51.8 Malignant neoplasm of overlapping sites of vulva (principal); K57.90 Diverticulosis of intestine, part unspecified, without perforation or abscess without bleeding; K86.89 Other specified diseases of pancreas; J43.9 Emphysema, unspecified; J47.9 Bronchiectasis, uncomplicated; Z95.828 Presence of other vascular implants and grafts
CPT/HCPCS: 71260; 74177; Q9967

== ENCOUNTER → 2024-06-20 | Outpatient (CLI) | payer OTHER ==
[~2024-06-20] MED LIST changes: -ISOVUE-370 76% 100ML VIAL As Ordered ONE
== END ==
LOC: M ONCR 09:37
PROVIDERS: ATTEND General Practice
DX: Z08 Encounter for follow-up examination after completed treatment for malignant neoplasm (principal); Z85.41 Personal history of malignant neoplasm of cervix uteri; D37.8 Neoplasm of uncertain behavior of other specified digestive organs; F17.210 Nicotine dependence, cigarettes, uncomplicated; Z92.21 Personal history of antineoplastic chemotherapy; Z92.3 Personal history of irradiation; Z88.0 Allergy status to penicillin; Z88.1 Allergy status to other antibiotic agents; Z88.5 Allergy status to narcotic agent

== ENCOUNTER → 2024-07-17 | Outpatient (CLI) | payer OTHER ==
[~2024-07-17] MED LIST changes: +CLOB5CR TOP
== END ==
LOC: M ONCR 15:34
PROVIDERS: ATTEND General Practice
DX: L53.9 Erythematous condition, unspecified (principal); L29.9 Pruritus, unspecified

== ENCOUNTER → 2024-08-07 | Outpatient (CLI) | payer OTHER ==
[2024-08-07 14:30] LABS: FOLLICLE STIMULATING HORMONE 117.2 mIU/ML; LUTEINIZING HORMONE 57.3 mIU/ML
[2024-08-07 14:32] LABS: ESTRADIOL 31.9 PG/ML
== END ==
LOC: M PLALAB 11:41
PROVIDERS: ATTEND Specialist
DX: N95.1 Menopausal and female climacteric states (principal)

== ENCOUNTER → 2024-12-13 | Outpatient (CLI) | payer OTHER ==
[~2024-12-13] MED LIST changes: +FLUO0.1C7 TOP; -FLUO1CRE4 TOP; +ISOVUE-370 76% 100 ML VIAL As Ordered ONE
== END ==
LOC: M RAD 14:50
PROVIDERS: ATTEND General Practice
DX: C51.8 Malignant neoplasm of overlapping sites of vulva (principal); K86.2 Cyst of pancreas; K57.30 Diverticulosis of large intestine without perforation or abscess without bleeding; J43.9 Emphysema, unspecified; J47.9 Bronchiectasis, uncomplicated
CPT/HCPCS: 71260; 74177; Q9967

== ENCOUNTER → 2024-12-21 | Outpatient (CLI) | payer OTHER ==
[~2024-12-21] MED LIST changes: -ISOVUE-370 76% 100 ML VIAL As Ordered ONE
== END ==
LOC: M ONCR 14:05
PROVIDERS: ATTEND General Practice
DX: Z08 Encounter for follow-up examination after completed treatment for malignant neoplasm (principal); K86.89 Other specified diseases of pancreas; F17.210 Nicotine dependence, cigarettes, uncomplicated; Z79.899 Other long term (current) drug therapy; Z85.44 Personal history of malignant neoplasm of other female genital organs; Z88.0 Allergy status to penicillin; Z88.1 Allergy status to other antibiotic agents; Z88.5 Allergy status to narcotic agent; Z92.21 Personal history of antineoplastic chemotherapy; Z92.3 Personal history of irradiation